=== PATIENT | male | born 1975 | race Caucasian/White ===

== ENCOUNTER 2016-12-23 17:29 | Emergency (ER) | payer OTHER ==
[2016-12-23] MEDS ORDERED: SODIUM CHLORIDE 0.9% 2,000 ML IV ONE (17:44)
[2016-12-23] MEDS ORDERED: IBUPROFEN 600 MG TAB PO STA (17:44)
--- NOTE | 2016-12-23 17:47 | ED ---
General Adult HPI - General Chief complaint: Alcohol Stated complaint: ETOH Time Seen by Provider: 12/23/16 17:34 Source: patient, EMS, RN notes reviewed Mode of arrival: EMS Limitations: no limitations - History of Present Illness Initial comments: This a 41-year-old male is brought to the emergency department via EMS for alcohol intoxication. Report was that he was too intoxicated to walk home. EMS reported his vitals were stable though he is febrile with tachycardia here. Patient has no specific complaints. Patient's not willing to give much information at this time as he is severely intoxicated. Patient denies any illicit drug use. Denies any heart medications and denies any past medical history. He denies chest pain, palpitations, nausea vomiting diarrhea constipation. Denies any cold-like symptoms. Patient states he does not have a fever states he has not felt sick. Patient states that he was at a local festival in which he was drinking. - Related Data Home Medications Medication Instructions Recorded Confirmed Multivitamin/Iron/Folic Acid 1 each PO DAILY 08/04/15 08/04/15 [Centrum Complete Multivit Tab] Previous Rx's Medication Instructions Recorded Amoxic-Pot Clav 875-125Mg 1 tab PO Q12HR #8 tablet 08/04/15 [Augmentin 875-125] Allergies Allergy/AdvReac Type Severity Reaction Status Date / Time No Known Allergies Allergy Verified 12/23/16 17:41 Review of Systems ROS Statement: Those systems with pertinent positive or pertinent negative responses have been documented in the HPI. ROS Other: All systems not noted in ROS Statement are negative. Past Medical History Past Medical History: No Reported History History of Any Multi-Drug Resistant Organisms: None Reported Past Surgical History: No Surgical Hx Reported Past Psychological History: No Psychological Hx Reported Smoking Status: Current every day smoker Past Alcohol Use History: Daily, Heavy Past Drug Use History: None Reported General Exam Limitations: no limitations General appearance: alert, in no apparent distress, appears intoxicated Head exam: Present: atraumatic, normocephalic, normal inspection Eye exam: Present: normal appearance, PERRL, EOMI. Absent: scleral icterus, conjunctival injection, periorbital swelling ENT exam: Present: normal exam, normal oropharynx, mucous membranes moist, TM's normal bilaterally Neck exam: Present: normal inspection. Absent: tenderness, meningismus, lymphadenopathy Respiratory exam: Present: normal lung sounds bilaterally. Absent: respiratory distress, wheezes, rales, rhonchi, stridor Cardiovascular Exam: Present: normal rhythm, tachycardia, normal heart sounds. Absent: systolic murmur, diastolic murmur, rubs, gallop, clicks GI/Abdominal exam: Present: soft, normal bowel sounds. Absent: distended, tenderness, guarding, rebound, rigid Neurological exam: Present: alert, oriented X3, CN II-XII intact Skin exam: Present: warm, dry, intact, normal color. Absent: rash Course Vital Signs 12/23/16 12/23/16 17:33 18:22 Temperature 101.1 F H Pulse Rate 131 H 122 H Respiratory 18 16 Rate Blood Pressure 143/86 157/96 O2 Sat by Pulse 99 98 Oximetry EKG Findings - EKG Comments: EKG Findings:: EKG performed at 17:58 sinus tachycardia with a rate of 119 [place] interval 150 QRS duration 96 QT/QTC 320/450 Medical Decision Making - Medical Decision Making 41-year-old male presented to [facility] from EMS for alcohol intoxication. Patient did have a fever and slight tachycardia. Patient lab work symptoms unremarkable other than a mild elevation of his lactic acid most related to dehydration. Patient is requesting to be discharged and has ripped out his IV. Patient does have from here who is sober and excessive presents polio the patient. - Lab Data Result diagrams: 12/23/16 18:12 12/23/16 18:12 Lab Results 12/23/16 12/23/16 12/23/16 Range/Units 18:12 18:12 18:12 WBC (3.8-10.6) k/uL RBC (4.30-5.90) m/uL Hgb (13.0-17.5) gm/dL Hct (39.0-53.0) % MCV (80.0-100.0) fL MCH (25.0-35.0) pg MCHC (31.0-37.0) g/dL RDW (11.5-15.5) % Plt Count (150-450) k/uL Neutrophils % % Lymphocytes % % Monocytes % % Eosinophils % % Basophils % % Neutrophils # (1.3-7.7) k/uL Lymphocytes # (1.0-4.8) k/uL Monocytes # (0-1.0) k/uL Eosinophils # (0-0.7) k/uL Basophils # (0-0.2) k/uL Sodium 141 (137-145) mmol/L Potassium 4.4 (3.5-5.1) mmol/L Chloride 102 (98-107) mmol/L Carbon Dioxide 22 (22-30) mmol/L Anion Gap 17 mmol/L BUN 6 L (9-20) mg/dL Creatinine 0.80 (0.66-1.25) mg/dL Est GFR (MDRD) Af Amer >60 (>60 ml/min/1.73 sqM) Est GFR (MDRD) Non-Af >60 (>60 ml/min/1.73 sqM) Glucose 93 (74-99) mg/dL Plasma Lactic Acid Cj (0.7-2.0) mmol/L Calcium 9.4 (8.4-10.2) mg/dL Total Bilirubin 1.2 (0.2-1.3) mg/dL AST 64 H (17-59) U/L ALT 65 (21-72) U/L Alkaline Phosphatase 92 (38-126) U/L Troponin I (0.000-0.034) ng/mL Total Protein 8.5 H (6.3-8.2) g/dL Albumin 5.1 H (3.5-5.0) g/dL Lipase 121 (23-300) U/L Urine Color Colorless Urine Appearance Clear (Clear) Urine pH 6.5 (5.0-8.0) Ur Specific Dolphin 1.002 (1.001-1.035) Urine Protein Negative (Negative) Urine Glucose (UA) Negative (Negative) Urine Ketones Negative (Negative) Urine Blood Negative (Negative) Urine Nitrite Negative (Negative) Urine Bilirubin Negative (Negative) Urine Urobilinogen <2.0 (<2.0) mg/dL Ur Leukocyte Esterase Negative (Negative) Urine Opiates Screen Not Detected (NotDetected) Ur Oxycodone Screen Not Detected (NotDetected) Urine Methadone Screen Not Detected (NotDetected) Ur Propoxyphene Screen Not Detected (NotDetected) Ur Barbiturates Screen Not Detected (NotDetected) U Tricyclic Antidepress Not Detected (NotDetected) Ur Phencyclidine Scrn Not Detected (NotDetected) Ur Amphetamines Screen Not Detected (NotDetected) U Methamphetamines Scrn Not Detected (NotDetected) U Benzodiazepines Scrn Not Detected (NotDetected) Urine Cocaine Screen Not Detected (NotDetected) U Marijuana (THC) Screen Detected H (NotDetected) Serum Alcohol 364 mg/dL 12/23/16 12/23/16 12/23/16 Range/Units 18:12 18:12 18:12 WBC 5.0 (3.8-10.6) k/uL RBC 4.46 (4.30-5.90) m/uL Hgb 14.5 (13.0-17.5) gm/dL Hct 43.6 (39.0-53.0) % MCV 97.8 (80.0-100.0) fL MCH 32.6 (25.0-35.0) pg MCHC 33.3 (31.0-37.0) g/dL RDW 12.1 (11.5-15.5) % Plt Count 224 (150-450) k/uL Neutrophils % 60 % Lymphocytes % 27 % Monocytes % 7 % Eosinophils % 1 % Basophils % 2 % Neutrophils # 3.0 (1.3-7.7) k/uL Lymphocytes # 1.3 (1.0-4.8) k/uL Monocytes # 0.4 (0-1.0) k/uL Eosinophils # 0.0 (0-0.7) k/uL Basophils # 0.1 (0-0.2) k/uL Sodium (137-145) mmol/L Potassium (3.5-5.1) mmol/L Chloride (98-107) mmol/L Carbon Dioxide (22-30) mmol/L Anion Gap mmol/L BUN (9-20) mg/dL Creatinine (0.66-1.25) mg/dL Est GFR (MDRD) Af Amer (>60 ml/min/1.73 sqM) Est GFR (MDRD) Non-Af (>60 ml/min/1.73 sqM) Glucose (74-99) mg/dL Plasma Lactic Acid Cj 2.7 H* (0.7-2.0) mmol/L Calcium (8.4-10.2) mg/dL Total Bilirubin (0.2-1.3) mg/dL AST (17-59) U/L ALT (21-72) U/L Alkaline Phosphatase (38-126) U/L Troponin I <0.012 (0.000-0.034) ng/mL Total Protein (6.3-8.2) g/dL Albumin (3.5-5.0) g/dL Lipase (23-300) U/L Urine Color Urine Appearance (Clear) Urine pH (5.0-8.0) Ur Specific Dolphin (1.001-1.035) Urine Protein (Negative) Urine Glucose (UA) (Negative) Urine Ketones (Negative) Urine Blood (Negative) Urine Nitrite (Negative) Urine Bilirubin (Negative) Urine Urobilinogen (<2.0) mg/dL Ur Leukocyte Esterase (Negative) Urine Opiates Screen (NotDetected) Ur Oxycodone Screen (NotDetected) Urine Methadone Screen (NotDetected) Ur Propoxyphene Screen (NotDetected) Ur Barbiturates Screen (NotDetected) U Tricyclic Antidepress (NotDetected) Ur Phencyclidine Scrn (NotDetected) Ur Amphetamines Screen (NotDetected) U Methamphetamines Scrn (NotDetected) U Benzodiazepines Scrn (NotDetected) Urine Cocaine Screen (NotDetected) U Marijuana (THC) Screen (NotDetected) Serum Alcohol mg/dL Disposition Clinical Impression: Alcoholic intoxication Disposition: HOME SELF-CARE Condition: Stable Instructions: Alcohol Intoxication (ED) Additional Instructions: Please return to the Emergency Department if symptoms worsen or any other concerns. Referrals: Rachael Rodgers MD [Primary Care Provider] - 1-2 days Time of Disposition: 19:21
[2016-12-23 18:24] VITALS: RESP 16
[2016-12-23 18:34] LABS: Basophils # (A) 0.1 k/uL (0-0.2); Basophils % (A) 2 %; CH 33.6; CHCM 34.4; Eosinophils % (A) 1 %; HCT 43.6 % (39.0-53.0); HDW 2.05; HGB 14.5 gm/dL (13.0-17.5); Luc # (Auto) 0.17; Luc % (Auto) 3; Lymphocytes # (A) 1.3 k/uL (1.0-4.8); Lymphocytes % (A) 27 %; MCH 32.6 pg (25.0-35.0); MCHC 33.3 g/dL (31.0-37.0); MCV 97.8 fL (80.0-100.0); Mean Platelet Volume 6.3; Monocytes # (A) 0.4 k/uL (0-1.0); Monocytes % (A) 7 %; Neutrophils % (A) 60 %; RBC 4.46 m/uL (4.30-5.90); RDW 12.1 % (11.5-15.5); WBC (Perox) 4.68
--- NOTE | 2016-12-23 18:34 | XR ---
EXAMINATION TYPE: XR chest 2V DATE OF EXAM: 12/23/2016 COMPARISON: NONE HISTORY: Chest pain. Positive EtOH. TECHNIQUE: Frontal and lateral views of the chest are obtained. FINDINGS: There is no focal air space opacity, pleural effusion, or pneumothorax seen. The cardiac silhouette size is within normal limits. The osseous structures are intact. IMPRESSION: No acute cardiopulmonary process.
[2016-12-23 18:42] LABS: Appearance,Urine Clear (Clear); Bilirubin,Urine Negative (Negative); Glucose,Urine (UA) Negative (Negative); Ketones,Urine Negative (Negative); Leukocyte Esterase,Urine Negative (Negative); Nitrite,Urine Negative (Negative); PH, Urine 6.5 (5.0-8.0); Protein,Urine Negative (Negative); Specific Gravity,Urine 1.002 (1.001-1.035); UA Billing (MACRO vs. MICRO) CHEM; Urobilinogen,Urine <2.0 mg/dL (<2.0)
[2016-12-23 18:53] LABS: ALT 65 U/L (21-72); AST 64 U/L (17-59); Alkaline Phosphatase 92 U/L (38-126); Anion Gap 17 mmol/L; Blood Urea Nitrogen 6 mg/dL (9-20); Calcium 9.4 mg/dL (8.4-10.2); Carbon Dioxide 22 mmol/L (22-30); Chloride 102 mmol/L (98-107); Glucose 93 mg/dL (74-99); Non-African American GFR(MDRD) >60 (>60 ml/min/1.73 sqM); Potassium 4.4 mmol/L (3.5-5.1); Sodium 141 mmol/L (137-145); Total Bilirubin 1.2 mg/dL (0.2-1.3); Total Protein 8.5 g/dL (6.3-8.2)
[2016-12-23 19:09] LABS: Alcohol 364 mg/dL
[2016-12-23 19:28] VITALS: BP 157/86; PULSE 112; TEMP 100
== END 2016-12-23 19:29 | disposition home or self-care (01) ==
LOC: EC 17:29
DX: F10.129 Alcohol abuse with intoxication, unspecified (principal); R00.0 Tachycardia, unspecified; R50.9 Fever, unspecified; R74.0 Nonspecific elevation of levels of transaminase and lactic acid dehydrogenase [LDH]; F17.200 Nicotine dependence, unspecified, uncomplicated; Z79.899 Other long term (current) drug therapy
CPT/HCPCS: 36415; 71020; 80053; 80306; 80320; 81003; 83605; 83690; 84484; 85025; 87040; 93005; 96360; 99284

== ENCOUNTER 2017-01-22 16:05 | Emergency (ER) | payer OTHER ==
[2017-01-22 16:29] VITALS: BP 132/96; TEMP 98.5
[2017-01-22] MEDS ORDERED: KETOROLAC 60 MG/2 ML VIAL IM STA (16:40)
[2017-01-22] MEDS ORDERED: methylPREDNISolone SOD SUCCI 125 MG/2 ML VIAL IM ONE (16:40)
--- NOTE | 2017-01-22 16:50 | ED ---
Upper Extremity HPI - General Chief Complaint: Extremity Injury, Upper Stated Complaint: Left Hand Numbness X's 1 Week Time Seen by Provider: 01/22/17 16:31 Source: patient, RN notes reviewed Mode of arrival: ambulatory Limitations: no limitations - History of Present Illness Initial Comments: 41-year-old male presents to the emergency department with the chief complaint of left forearm and hand numbness tingling. Patient states she's had this on and off the past few weeks and is getting worse. He is having pain with it. 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 Patient denies any neck pain. Patient is a full-time is interested in pain. Patient states is more along the thumb area hand. Patient states he feels that his hand is more weak compared to normal as well. Patient states it's been crying for about 3 weeks and just rest the elbow goes to the hand. Patient states is not currently having any other symptoms at this time. He states the pain is moderate and throbbing. Patient denies any recent fever, chills, shortness of breath, chest pain, back pain, abdominal pain, nausea vomiting, dysuria or hematuria, constipation or diarrhea, headaches or visual changes, or any other current symptoms. - Related Data Home Medications Medication Instructions Recorded Confirmed Multivitamin/Iron/Folic Acid 1 tab PO DAILY 08/04/15 01/22/17 [Centrum Complete Multivit Tab] Previous Rx's Medication Instructions Recorded predniSONE 50 mg PO DAILY #5 tab 01/22/17 Allergies Allergy/AdvReac Type Severity Reaction Status Date / Time No Known Allergies Allergy Verified 01/22/17 16:41 Review of Systems ROS Statement: Those systems with pertinent positive or pertinent negative responses have been documented in the HPI. ROS Other: All systems not noted in ROS Statement are negative. Past Medical History Past Medical History: No Reported History History of Any Multi-Drug Resistant Organisms: None Reported Past Surgical History: No Surgical Hx Reported Past Psychological History: No Psychological Hx Reported Smoking Status: Current every day smoker Past Alcohol Use History: Daily, Occasional General Exam - General Exam Comments Initial Comments: General: The patient is awake and alert, in no distress, and does not appear acutely ill. Neck: The neck is supple, there is no tenderness. Cardiovascular: There is a regular rate and rhythm. No murmur, rub or gallop is appreciated. Respiratory: Lungs are clear to auscultation, respirations are non-labored, breath sounds are equal. No wheezes, stridor, rales, or rhonchi. Musculoskeletal: Sensation intact with 2+ pulses throughout the left upper x- ray. Fund motion left shoulder and left elbow. Patient does have decreased strength to the left hand. Sensation is intact however he complains that it does feel different compared to the right along the right thumb area. Neurological: CN II-XII intact, There are no obvious motor or sensory deficits. Coordination appears grossly intact. Speech is normal. Skin: Skin is warm and dry and no rashes or lesions are noted. Psychiatric: Normal mood and affect. Limitations: no limitations Course Vital Signs 01/22/17 16:19 Temperature 98.5 F Pulse Rate 91 Respiratory 20 Rate Blood Pressure 132/96 O2 Sat by Pulse 100 Oximetry Medical Decision Making - Medical Decision Making 41-year-old male presents with what appears to be cervical radiculopathy. At this time we did discuss follow-up and he was given referral to orthopedic. We discussed return parameters all patient's questions. We will start him concerns for home. Patient stated that he understood and he is in agreement with this plan. All questions have been answered. Patient will be discharged at this time. - Radiology Data Radiology results: report reviewed, image reviewed Disposition Clinical Impression: Cervical radiculopathy Disposition: HOME SELF-CARE Condition: Stable Instructions: Cervical Radiculopathy (ED) Additional Instructions: Please use medication as discussed. Please follow up with family doctor if symptoms have not improved over the next two days. Please return to the emergency room if your symptoms increase or worsen or for any other concerns. Prescriptions: predniSONE 50 mg PO DAILY #5 tab Referrals: Rachael Rodgers MD [Primary Care Provider] - 1-2 days Juan Huitron MD [STAFF PHYSICIAN] - 1-2 days Time of Disposition: 17:59
--- NOTE | 2017-01-22 17:58 | XR ---
Exam: FILM C SPINE INDICATION: Pain COMPARISON: MRI cervical spine 09/06/15 FINDINGS: 6 views of the cervical spine are obtained to include bilateral oblique views. No fracture or malalignment. Vertebral body heights are maintained. There is mild to moderate C6/C7 degenerative disc space narrowing. There is uncovertebral joint degenerative changes at C6/C7 with degenerative osseous encroachment on the foramina bilaterally left greater than right with mild right osseous and moderate left osseous foraminal narrowing. Component of mild endplate degenerative osteophyte formation appears to mildly encroach on the central canal at C6/C7 level. Remaining disc heights are maintained. Posterior elements unremarkable. Remaining uncovertebral joints are unremarkable. Remaining osseous foramina are patent. Paraspinous soft tissues unremarkable by radiograph. IMPRESSION: No fracture or malalignment. C6/C7 mild to moderate degenerative disc space narrowing with uncovertebral joint degenerative changes with osseous degenerative encroachment on the bilateral C6/C7 foramina with moderate left osseous foraminal narrowing and mild right osseous foraminal narrowing. Mild endplate degenerative osteophytes formation appears to mildly encroach on the central canal at C6/C7 level. Degree of foraminal narrowing may be more prominent due to disc bulge process. If indicated MRI examination follow-up can be considered. Remainder of the examination is unremarkable.
[2017-01-22 18:04] VITALS: PULSE 83; RESP 18
== END 2017-01-22 18:00 | disposition home or self-care (01) ==
LOC: EC 16:05
DX: M54.12 Radiculopathy, cervical region (principal); F17.200 Nicotine dependence, unspecified, uncomplicated; Z79.899 Other long term (current) drug therapy
CPT/HCPCS: 72050; 99283; 96372 ×2; J2930; J1885

== ENCOUNTER → 2017-04-04 | Outpatient (CLI) | payer OTHER ==
--- NOTE | 2017-04-04 08:58 | US ---
EXAMINATION TYPE: US abdomen complete DATE OF EXAM: 04/04/2017 COMPARISON: NONE CLINICAL HISTORY: F10.20 Alcoholism. no symptoms EXAM MEASUREMENTS: Liver Length: 14.7 cm Gallbladder Wall: 0.1 cm CBD: 0.4 cm Spleen: 11.2 cm Right Kidney: 9.9 x 5.4 x 5.2 cm Left Kidney: 12.3 x 4.6 x 5.4 cm Pancreas: wnl Liver: wnl Gallbladder: fold seen, tiny nonshadowing nonmobile hyperechoic focus along the wall could reflect s mall 3 mm polyp. Evidence for sonographic Huitron's sign: no CBD: wnl Spleen: wnl Right Kidney: wnl Left Kidney: wnl Upper IVC: wnl Abd Aorta: wnl The liver is homogenous. The intrahepatic portion of the IVC and proximal abdominal aorta are within normal limits. There is no evidence of shadowing mobile cholelithiasis. Common bile duct is unrema rkable. The visualized portions of the pancreas are homogenous. The spleen is unremarkable. Kidney s are symmetric and free of hydronephrosis. No renal lesions are seen. IMPRESSION: No significant finding identified. No intrahepatic mass or intrahepatic ductal dilatation is seen.
== END | disposition home or self-care (01) ==
LOC: RADUSWWP 07:08
PROVIDERS: ATTEND Family Medicine
DX: F10.20 Alcohol dependence, uncomplicated (principal)
CPT/HCPCS: 76700

== ENCOUNTER 2017-11-21 13:23 | Observation (INO) | payer OTHER ==
[2017-11-16 15:20] VITALS: BMI 22.4
[~2017-11-21 13:23] MED LIST: DEXAMETHASONE SOD PHOSPHATE 10 MG/ML 1 ML VIAL IV ONE; LIDOCAINE 1% 20 ML VIAL (10MG/ML) FOR IV START INTRADERMA PRN; MIDAZOLAM 2 MG/2 ML VIAL IV PRN; ONDANSETRON ODT 4 MG TAB PO ONE; SCOPOLAMINE 1.5MG/72HR PATCH TRANSDERM ONE; ceFAZolin IN SWFI 2 GM/20 ML SYRINGE IVP ONE; fentaNYL (PF) 50 MCG/ML 2 ML AMP IV PRN
[2017-11-21] MEDS: LACTATED RINGERS 1,000 ML IV SCH ×3 (13:30→21:10)
[2017-11-21] MEDS ORDERED: ONDANSETRON 4 MG/2 ML VIAL IVP ONE (13:52)
[2017-11-21] MEDS ORDERED: PROPOFOL 10 MG/ML 20 ML VIAL IV ONE (16:29)
[2017-11-21] MEDS ORDERED: fentaNYL (PF) 50 MCG/ML 2 ML AMP ONE (16:29)
[2017-11-21] MEDS ORDERED: LIDOCAINE 1% INJ 10MG/ML (20 ML MDV) ONE (16:29)
[2017-11-21] MEDS ORDERED: MIDAZOLAM 2 MG/2 ML VIAL ONE (16:29)
[2017-11-21] MEDS ORDERED: ROCURONIUM BROMIDE 10 MG/ML 10 ML VIAL IV ONE (16:29)
[2017-11-21] MEDS ORDERED: ONDANSETRON 4 MG/2 ML VIAL IVP PRN (16:39)
[2017-11-21] MEDS ORDERED: PROCHLORPERAZINE SUPPOSITORY 25 MG SUPP RECTAL PRN (16:39)
[2017-11-21] MEDS ORDERED: SENNOSIDES-DOCUSATE SODIUM 1 EACH TAB PO PRN (16:39)
[2017-11-21] MEDS ORDERED: TEMAZEPAM 15 MG CAP PO PRN (16:39)
[2017-11-21] MEDS ORDERED: METOCLOPRAMIDE 5 MG/ML 2 ML VIAL IVP PRN (16:39)
[2017-11-21] MEDS ORDERED: MORPHINE SULFATE 4 MG/ML SYRINGE IVP PRN ×3 (16:39→20:16)
[2017-11-21] MEDS ORDERED: hydrOXYzine PAMOATE 25 MG CAP PO PRN (16:39)
[2017-11-21] MEDS ORDERED: diphenhydrAMINE 25 MG CAP PO PRN (16:39)
[2017-11-21] MEDS ORDERED: HYDROcodone/APAP 7.5-325MG 1 EACH TAB PO PRN (16:43)
[2017-11-21] MEDS ORDERED: ROPIVACAINE 5 MG/ML 30 ML VIAL ONE (16:53)
[2017-11-21] MEDS ORDERED: ceFAZolin 1,000 MG in SODIUM CHLORIDE 0.9% 1,000 ML IRRIGATION ONE (16:57)
[2017-11-21] MEDS ORDERED: LACTATED RINGERS 1,000 ML IV ONE (18:16)
[2017-11-21] MEDS ORDERED: MEPERIDINE 50 MG/ML SYRINGE IVP ONE ×2 (20:00→20:10)
--- NOTE | 2017-11-21 20:12 | P.OP ---
Date of Procedure: 11/21/17 Preoperative Diagnosis: 1. Left Caicedo II talar neck fracture 2. History of cigarette smoking 3. Chronic alcohol abuse 4. Noncompliance Postoperative Diagnosis: Same Procedure(s) Performed: 1. Open reduction internal fixation left talar neck fracture 2. Removal of ankle spanning external fixator, left 3. Application of short leg splint by physician, left Anesthesia: EDINSONA Surgeon: Catracho Ch Business Development Coordinator #1: Rohit Levine Estimated Blood Loss (ml): 40 IV fluids (ml): 950 Pathology: none sent Condition: stable Disposition: PACU Indications for Procedure: The patient is a 42-year-old male with a medical history significant for cigarette smoking and chronic alcohol abuse who sustained a fall off a ladder in late October 2017 resulting in a displaced talar neck fracture. He underwent percutaneous reduction and application of an ankle spanning external fixator due to significant soft tissue swelling and fracture blisters. The patient has been monitored weekly for the last 2 weeks watching for the soft tissue to be amenable for surgery. The patient was seen yesterday and was found to have wrinkling of the skin and resolved fracture blisters. The patient states that he has not smoked since his accident but has gone to the bar several times. We discussed the potential risks and complication of surgery at length in the office. Risks discussed include risk of anesthesia, risk of superficial infection, deep infection, risk of damage to local blood vessels or nerves, risk of nonunion, risk of malunion particularly varus malunion, risk of symptomatic hardware, risk of avascular necrosis, risk of chronic pain, risk of chronic swelling, risk of postoperative displacement of the fracture or peritalar joints, risk of DVT, risk of PE, risk of inability to regain preinjury level of function, risk of the satisfaction of surgery, risk of postoperative medical complications, and possibly loss of life or limb. The patient is well aware of the risks particularly associated with displaced talar neck fractures in particular risk of avascular necrosis, risk of post-traumatic arthritis, risk of nonunion, and risk of malunion. The patient and his parents also understand the increased risk due to the patient's history of smoking and chronic alcohol abuse. They provided their consent to go forward with surgery. Operative Findings: There was extensive comminution of the medial and lateral neck of the talus Description of Procedure: The patient was identified in preoperative holding and the correct left leg was marked with my initials. I reviewed the consent form with the patient and his parents. All of their questions were answered. The patient was then brought back to the operating room by anesthesia. A general anesthetic and preoperative antibiotics were administered well the patient was on the gurney. He was then transferred to the OR table and positioned for surgery. A bump was placed on the left buttock internally rotating the leg to neutral. A tourniquet was applied proximal aspect of the left thigh. Foam was placed under the right leg. All bony prominences were well-padded. The patient's left leg was then prepped and draped in a standard sterile fashion prepping the external fixator into the field. The timeout was then performed identifying the correct patient, operative extremity, and procedure. The patient's leg was elevated for 2 minutes and the tourniquet was inflated to 250 mmHg. I began by outlining dual incisions over the anteromedial and anterolateral ankle and talar neck. The anteromedial incision started at the medial malleolus and is between the tibialis anterior and posterior tibial tendon. The anterolateral incision was started over the anterolateral ankle and extended in line with the fourth ray. The medial incision was made with a scalpel and dissection was carried down carefully to the subcutaneous tissue. The capsule the talonavicular joint was identified and opened. The talar head was identified. The talar neck fracture was also identified and there were several large bony fragments and comminution. The large fragments were handed off to the back table and marked as medial. The lateral incision was then made with a scalpel. The superficial peroneal nerve was identified and carefully retracted. The extensor retinaculum was incised. The extensor tendons were retracted medially and the EDB muscle and capsule were incised. The talar neck fracture was then identified. There was extensive comminution laterally particularly at the lateral talar process. There were multiple small osteochondral fragments. The larger fragments were marked. There are multiple small nonviable fragments. I then proceeded to reduce the talar neck fracture. A K wire was placed from lateral to medial across the head fragment to use as a joystick. The graphite bars from the external fixator were removed. A 4 mm Schanz pain was placed into the lateral talar body to use as a joystick. My partner pulled longitudinal traction through the trans-calcaneal pin and I manipulated the talar body fracture with the Schanz pin and universal lucina. Once the subtalar joint was found to be reduced K wires were placed medially and laterally through the talar head and into the body. A lateral fluoroscopic view showed the subtalar joint was reduced but the body was plantarflexed. The K wires withdrawn and I used the 4 mm Schanz pin to dorsiflex the talar body and the K wires were again driven across the talar body. I used both the medial and lateral incisions to gauge the reduction which was difficult due to the extensive amount of comminution. Clinically the patient's foot did not appear to be over reduced. The lateral view showed the subtalar joint reduced and the head portion of the talus reduced fairly well to the body. I debated placing a spanning external fixator from the calcaneus to the midfoot but due to the patient's history of alcohol abuse and cigarette smoking I elected not to. I then placed a non-lag, countersunk screws both medially and laterally through the talar head into the talar body. Two 3.5 screws were placed medial and laterally and two 2.7 screws were placed both medial and lateral. The position of the screws and the reduction was verified with a lateral, mortise, AP foot, and canal he view. The reduction was deemed to be adequate given the patient's extensive amount of comminution. The large anterolateral fragment was pinned into place and an independent 2.0 mm screw was placed. Final fluoroscopic images were taken. Both wounds were copiously irrigated. The tibial pins were removed by hand. The trans-calcaneal pin was cut at the skin medially and removed laterally. The pin sites were gently debrided using a curette and irrigated. Both the anteromedial and anterolateral wounds were closed in layers with 0 Vicryl for the capsule, 2-0 Vicryl for the retinaculum, 2-0 Vicryl for the subcutaneous tissue, and nylon horizontal mattress for the skin. I verified that all instrument, sponge, and sharp counts were correct, Betadine soaked Adaptics were placed over the Schanz pin sites from the external fixator. Silvadene was placed over the posteromedial ankle at the site of the last fracture blister. The surgical incisions had Betadine soaked Adaptic, 4 x 4's, and web roll placed. The drapes were taken down and a well- padded bulky Blair splint was placed with the ankle in neutral. The patient was then awoken from his anesthetic, transferred to a gurney, and brought to PACU without the procedure well. Rohit Levine PA-C was required is a skilled neurosurgical physician assistant for patient positioning, surgical exposure, fracture reduction, placement of hardware, closure of wounds , and application of splint. Postoperative plan: The patient is going to be admitted overnight for IV antibiotics and pain control. He is to be strictly nonweightbearing on his left leg. He'll be treated with Lovenox while in-house for DVT prophylaxis and will discharge home on aspirin. He is going to be strictly nonweightbearing for 12 weeks.
--- NOTE | 2017-11-21 20:13 | P.ONQ ---
Anesthesiology Proc Note - PNB - Peripheral Nerve Block Performed Left Popliteal Indication: Acute Post-Operative Pain, Requested by physician (Dr Spear) Sedation Type: Sedate with meaningful contact maintained Preparation: Sterile Prep Position: Supine (Lateral) Catheter: None Needle Types: Other (see comment) (Geovanni) Needle Gauge: 21 Injectate: 0.5% Ropivacaine (see comment for volume) (20cc) Blood Aspirated: No Pain Paresthesia on Injection Noted: No Resistance on Injection: Normal Events: Uneventful and Well Tolerated
[2017-11-21 20:33] VITALS: RESP 16
[2017-11-21] MEDS: MORPHINE SULFATE 4 MG/ML SYRINGE IVP PRN (21:04)
[2017-11-21] MEDS: HYDROcodone/APAP 7.5-325MG 1 EACH TAB PO PRN (22:03)
[2017-11-21] MEDS: ceFAZolin IN SWFI 2 GM/20 ML SYRINGE IVP SCH (23:19)
[2017-11-22] MEDS: MORPHINE SULFATE 4 MG/ML SYRINGE IVP PRN ×6 (00:04→21:54)
[2017-11-22] MEDS: HYDROcodone/APAP 7.5-325MG 1 EACH TAB PO PRN (04:43)
[2017-11-22] MEDS: LACTATED RINGERS 1,000 ML IV SCH ×4 (04:44→21:57)
[2017-11-22 07:28] LABS: Basophils % (A) 0 %; Eosinophils % (A) 0 %; HCT 35.6 % (39.0-53.0); HGB 11.9 gm/dL (13.0-17.5); Lymphocytes # (A) 0.8 k/uL (1.0-4.8); Lymphocytes % (A) 8 %; MCHC 33.4 g/dL (31.0-37.0); Mean Platelet Volume 6.8; Monocytes # (A) 0.6 k/uL (0-1.0); Monocytes % (A) 6 %; Neutrophils # (A) 8.4 k/uL (1.3-7.7); Neutrophils % (A) 85 %; Platelet Count 466 k/uL (150-450); RBC 3.96 m/uL (4.30-5.90); RDW 12.8 % (11.5-15.5); WBC 9.9 k/uL (3.8-10.6)
[2017-11-22] MEDS: ENOXAPARIN 40 MG/0.4 ML SYRINGE SQ SCH (08:31)
[2017-11-22] MEDS: ceFAZolin IN SWFI 2 GM/20 ML SYRINGE IVP SCH (08:31)
--- NOTE | 2017-11-22 08:33 | P.PN ---
Subjective Progress Note Date: 11/22/17 Principal diagnosis: Talar neck fracture left ankle. Status post removal external fixator and open reduction internal fixation left talar neck. This is a 42-year-old male who is status post open reduction internal fixation of his talar neck fracture left ankle as well as removal of external fixator. The patient has no new complaints or concerns today. He rates his pain 8/10. The patient does have history of EtOH abuse. Objective - Vital Signs Vital signs: Vital Signs Temp 98.5 F 11/22/17 07:15 Pulse 81 11/22/17 07:15 Resp 16 11/22/17 07:15 BP 117/63 11/22/17 07:15 Pulse Ox 100 11/22/17 07:15 Intake & Output 11/21/17 11/22/17 11/22/17 18:59 06:59 18:59 Intake Total 1101 450 Output Total 40 Balance 1101 410 Weight 74.843 kg Intake: IV 1101 450 Output: Estimated Blood Loss 40 Other: # Voids 3 - Exam This is a 42-year-old male in no acute distress. He is alert and oriented 3. Exam of the lower extremity reveals no obvious deformity. The short leg splint is intact. He is unable to move toes actively. He has dulled sensation to the toes. Capillary refill is less than 3 seconds. - Labs CBC & Chem 7: 11/22/17 07:05 Labs: Abnormal Lab Results - Last 24 Hours (Table) 11/22/17 Range/Units 07:05 RBC 3.96 L (4.30-5.90) m/uL Hgb 11.9 L (13.0-17.5) gm/dL Hct 35.6 L (39.0-53.0) % Plt Count 466 H (150-450) k/uL Neutrophils # 8.4 H (1.3-7.7) k/uL Lymphocytes # 0.8 L (1.0-4.8) k/uL Assessment and Plan (1) Status post ORIF of fracture of ankle Current Visit: Yes Status: Acute Code(s): Z96.7 - PRESENCE OF OTHER BONE AND TENDON IMPLANTS; Z87.81 - PERSONAL HISTORY OF (HEALED) TRAUMATIC FRACTURE SNOMED Code(s): 540050962 (2) Fracture of neck of left talus Current Visit: No Status: Acute Code(s): S92.112A - DISP FX OF NECK OF LEFT TALUS, INIT FOR CLOS FX SNOMED Code(s): 648451268 Plan: The clinical findings are discussed the patient. I reviewed the case with Dr. Ch. The patient will remain inpatient today. I've increase his pain medication to Percocet 5/325. He is to continue strict nonweightbearing to the left lower extremity with walker or crutches. I've consulted medical management. The patient may require DT prophylaxis.
--- NOTE | 2017-11-22 08:50 | FL ---
EXAMINATION TYPE: FL guidance operating room DATE OF EXAM: 11/21/2017 HISTORY: Flouroscopy time 2 minutes and 26 seconds of fluoroscopy provided. IMPRESSION: 1. Fluoroscopy time.
--- NOTE | 2017-11-22 08:52 | XR ---
EXAMINATION TYPE: XR ankle complete LT DATE OF EXAM: 11/21/2017 COMPARISON: NONE HISTORY: Talus fracture TECHNIQUE: Intraoperative images were obtained with a single views submitted FINDINGS: Postsurgical changes appear in near anatomic alignment. Age-indeterminate deformity of the calcaneus noted. Correlate clinically. IMPRESSION: Postoperative changes seen
[2017-11-22] MEDS: oxyCODONE-APAP 5-325MG 1 EACH TAB PO PRN ×4 (09:35→22:58)
[2017-11-22] MEDS ORDERED: POLYETHYLENE GLYCOL 3350 17 GM POWD.PACK PO PRN (12:55)
--- NOTE | 2017-11-22 13:02 | P.CONS ---
History of Present Illness - Reason for Consult Consult date: 11/22/17 medical management post op Requesting physician: Catracho Ch - Chief Complaint scheduled removal of external fixators from left ankle - History of Present Illness 42-year-old male with no significant past medical history. Patient sustained a fall while climbing on a ladder 3-4 weeks ago resulted in left ankle fracture requiring external fixators. He is presented today for scheduled removal of external fixators and open reduction with internal fixation of the left ankle joints. He tolerated procedure well with no observed immediate perioperative complications. Patient reports that pain is controlled to some degree if he avoid sudden movements. He reports some constipation over the past 4 days, however he is passing urine with no issues and passing gases. His tolerating by mouth intake. Denies any chest pain or trouble breathing denies any fevers or chills.he denies any nausea or vomiting. Patient denies any numbness or tingling sensation over his left toes at this point. Review of Systems Constitutional: Patient denies fever, denies chills, denies night sweating, denies significant weight changes Eyes: Patient denies visual changes, denies eye pain ENT: Patient denies ear pain, denies rhinorrhea, denies sore throat Cardiovascular: Patient denies chest pain, denies exertional dyspnea, denies peripheral leg edema, denies orthopnea, denies paroxysmal nocturnal dyspnea Respiratory:Patient denies cough, denies wheezing, denies shortness of breath Gastrointestinal: Patient denies diarrhea, reports constipation, denies nausea , denies vomiting, denies abdominal pain Genitourinary: Patient denies dysuria, denies hematuria, denies changes in urinary habits, denies genital lesions Musculoskeletal: Patient denies muscle pain, reports pain around surgical site Psychiatric: Patient denies changes in mood or memory, denies suicidal ideation, denies anxiety Endocrine: Patient denies heat intolerance, denies cold intolerance, denies excessive thirst, denies polyuria Neurological: Patient denies focal neurologic deficits, denies weakness, denies numbness, denies tingling Hem/Lymphatic: Patient denies bleeding tendency, denies bruising, denies swollen lymph glands Allergic/Immun: Patient denies recent allergic reactions Skin: Patient denies rashes, denies pruritis, denies ulcers Past Medical History Past Medical History: No Reported History Additional Past Medical History / Comment(s): fx left ankle 2 weeks ago- fell off ladder, using wheelchair,walker and crutches History of Any Multi-Drug Resistant Organisms: None Reported Past Surgical History: Orthopedic Surgery Additional Past Surgical History / Comment(s): cyst removed from neck, 11/02/17 - attempted closed reduction left ankle then external fixation of left ankle Past Anesthesia/Blood Transfusion Reactions: No Reported Reaction Past Psychological History: No Psychological Hx Reported Smoking Status: Current some day smoker (patient quit smoking 2-1/2 weeks ago) Past Alcohol Use History: Daily (patient reports daily drinking however since the incident he has not had any alcohol except for a few drinks 5 days ago) Additional Past Alcohol Use History / Comment(s): stopped smoking 2 weeks ago, smoked for 30 yrs, was occ smoker Past Drug Use History: None Reported - Past Family History Father Family Medical History: Unable to Obtain Mother Family Medical History: No Reported History Additional Family Medical History / Comment(s): patient denies any family history of CAD or cancer Medications and Allergies Home Medications Medication Instructions Recorded Confirmed Type Multivitamin/Iron/Folic Acid 1 tab PO DAILY 08/04/15 11/21/17 History [Centrum Complete Multivit Tab] Aspirin 325 mg PO DAILY 11/16/17 11/21/17 History Sulfamethox-Tmp 800-160Mg [Bactrim 1 tab PO Q12HR 11/16/17 11/21/17 History DS 800-160 mg] oxyCODONE HCL/ACETAMINOPHEN 1 tab PO Q4-6H PRN 11/16/17 11/21/17 History [Percocet 5-325 mg] Allergies Allergy/AdvReac Type Severity Reaction Status Date / Time No Known Allergies Allergy Verified 11/21/17 13:34 Physical Exam Vitals: Vital Signs Temp Pulse Resp BP Pulse Ox 11/22/17 07:15 98.5 F 81 16 117/63 100 11/21/17 22:55 90 104/71 11/21/17 22:40 93 111/73 11/21/17 22:25 92 108/69 11/21/17 22:10 93 114/75 11/21/17 21:40 94 109/71 11/21/17 21:25 91 111/68 11/21/17 21:10 92 111/70 11/21/17 20:55 98.6 F 103 H 16 116/69 100 11/21/17 20:20 101 H 16 126/78 99 11/21/17 20:05 100 18 123/68 99 11/21/17 19:49 98 F 117 H 20 136/77 100 11/21/17 13:54 98.9 F 92 16 108/66 96 Intake and Output 11/21/17 11/22/17 11/22/17 22:59 06:59 14:59 Intake Total 1351 Output Total 40 Balance 1311 Intake: IV 1351 Output: Estimated Blood Loss 40 Other: Voiding Method Urinal # Voids 3 Weight 74.843 kg Constitutional: No acute distress, conversant, pleasant Eyes: Anicteric sclerae, moist conjunctiva, no lid-lag Pupils equal round reactive to light ENMT: NC/AT Oropharynx clear, no erythema, orexudates Neck: Supple, FROM, no masses, or JVD No carotid bruits No thyromegaly Lungs: Clear to auscultation Clear to percussion Normal respiratory effort, no accessory muscle use Cardiovascular: Heart regular in rate and rhythm, No murmurs, gallops, or rubs No peripheral edema Abdominal: Soft Nontender, no guarding, rebound or rigidity Abdomen moving with respiration Normoactive bowel sounds No hepatomegaly, No splenomegaly No palpable mass No abdominal wall hernia noted Skin: Normal temperature, tone, texture, turgor No induration No subcutaneous nodules No rash, lesions No ulcers Extremities: capillary refill is immediate over the left toes No digital cyanosis No clubbing Pedal pulses intact Over the right foot unable to test on the left foot due to cast Radial pulses intact and symmetrical No calf tenderness over the right leg, the left leg is wrapped in surgical dressing in a cast Psychiatric: Alert and oriented to person, place and time Appropriate affect fair judgment Neuro Muscles Strength 5/5 in all 4 extremities except for limited exam over the left lower extremity due to pain postsurgery. Sensation to light touch grossly present throughout Cranial nerves II-XII grossly intact No focal sensory deficits Lymphatics: no palpable cervical or supraclavicular , or inguinal lymph nodes Results CBC & Chem 7: 11/22/17 07:05 Labs: Abnormal Lab Results - Last 24 Hours (Table) 11/22/17 Range/Units 07:05 RBC 3.96 L (4.30-5.90) m/uL Hgb 11.9 L (13.0-17.5) gm/dL Hct 35.6 L (39.0-53.0) % Plt Count 466 H (150-450) k/uL Neutrophils # 8.4 H (1.3-7.7) k/uL Lymphocytes # 0.8 L (1.0-4.8) k/uL Assessment and Plan Assessment: 42-year-old male with no significant past medical history presented for scheduled external fixator removal from his left ankle fracture with open reduction internal fixation this time. Medicine is consult. For postoperative medical management, currently patient seen postoperative day #1 doing well no observed immediate complications. Plan: #left ankle fracture secondary to accidental fall, status post removal of external fixators and open reduction and internal fixation postoperative day one DVT prophylaxis per orthopedics Pain control per orthopedics #Constipation secondary to opiates Senna/docusate scheduled twice a day MiraLAX when necessary #Postoperative anemia secondary to blood loss Continue to monitor no evidence of ongoing bleeding We'll avoid iron supplementation at this time due to patient already complaining of constipation #DVT prophylaxis per orthopedic recommendations #Recent history of regular alcohol intake At this time no risk of alcohol withdrawal, patient has quit drinking for couple weeks now and his most recent drink was 5 days ago where he had couple beers. Patient denies any symptoms of alcohol withdrawal at this time #Tobacco smoking abuse Patient admits to occasionally smoking He has quit 2-1/2 weeks ago Thank you for allowing us to participate in the care of this patient. Do not hesitate to contact us with questions. Someone can be reached from the [facility] hospitalist group at all hours of the day at [phone].
[2017-11-22] MEDS: SENNOSIDES-DOCUSATE SODIUM 1 EACH TAB PO SCH ×2 (13:51→21:54)
[2017-11-22 14:53] LABS: Anion Gap 14 mmol/L; Blood Urea Nitrogen 18 mg/dL (9-20); Calcium 9.2 mg/dL (8.4-10.2); Carbon Dioxide 27 mmol/L (22-30); Chloride 97 mmol/L (98-107); Glucose 100 mg/dL (74-99); Potassium 4.4 mmol/L (3.5-5.1); Sodium 138 mmol/L (137-145)
[2017-11-23] MEDS: MORPHINE SULFATE 4 MG/ML SYRINGE IVP PRN ×2 (02:21→05:29)
[2017-11-23] MEDS: oxyCODONE-APAP 5-325MG 1 EACH TAB PO PRN ×2 (06:02→11:12)
[2017-11-23] MEDS ORDERED: ERGOCALCIFEROL 50,000 UNIT CAP PO SCH (07:30)
[2017-11-23 07:58] VITALS: BP 119/70; PULSE 80; TEMP 98.4
--- NOTE | 2017-11-23 08:31 | P.DS ---
Providers Date of admission: 11/22/17 16:07 Expected date of discharge: 11/23/17 Attending physician: Catracho Ch Consults: 11/22/17 08:25 Consult Physician Urgent Consulting Provider: Jacki Malik Consult Reason/Comments: Medical management Do you want consulting provider notified?: Already Contacted Primary care physician: Rachael Rodgers - Discharge Diagnosis(es) (1) Status post ORIF of fracture of ankle Current Visit: Yes Status: Acute (2) Fracture of neck of left talus Current Visit: No Status: Acute Hospital Course: This is a 42-year-old male who is status post open reduction internal fixation of a talar neck fracture with removal of external fixator left ankle. The patient's pain is improved today. He has been up with a walker maintaining nonweightbearing status to the lower extremity. He has no new complaints or concerns today. He may be discharged to home today in good condition. Please see med rec for accurate list of home medications. Patient Condition at Discharge: Good Plan - Discharge Summary Discharge Rx Participant: Yes New Discharge Prescriptions: New oxyCODONE HCL/ACETAMINOPHEN [Percocet 5-325 mg] 1 - 2 tab PO Q6HR PRN 3 Days #60 tab PRN Reason: Pain Aspirin 325 mg PO BID #60 tab No Action Multivitamin/Iron/Folic Acid [Centrum Complete Multivit Tab] 1 tab PO DAILY Sulfamethox-Tmp 800-160Mg [Bactrim DS 800-160 mg] 1 tab PO Q12HR oxyCODONE HCL/ACETAMINOPHEN [Percocet 5-325 mg] 1 tab PO Q4-6H PRN PRN Reason: Pain Aspirin 325 mg PO DAILY Discharge Medication List Multivitamin/Iron/Folic Acid [Centrum Complete Multivit Tab] 1 tab PO DAILY [History] Aspirin 325 mg PO DAILY 11/16/17 [History] Sulfamethox-Tmp 800-160Mg [Bactrim DS 800-160 mg] 1 tab PO Q12HR 11/16/17 [ History] oxyCODONE HCL/ACETAMINOPHEN [Percocet 5-325 mg] 1 tab PO Q4-6H PRN 11/16/17 [ History] Aspirin 325 mg PO BID #60 tab 11/23/17 [Rx] oxyCODONE HCL/ACETAMINOPHEN [Percocet 5-325 mg] 1 - 2 tab PO Q6HR PRN 3 Days # 60 tab 11/23/17 [Rx] Follow up Appointment(s)/Referral(s): Catracho Ch MD [Medical Doctor] - 10 Days Activity/Diet/Wound Care/Special Instructions: Nonweightbearing left lower extremity with walker or crutches. Keep splint intact. Discharge Disposition: HOME SELF-CARE
[2017-11-23] MEDS: LACTATED RINGERS 1,000 ML IV SCH (08:46)
[2017-11-23] MEDS: SENNOSIDES-DOCUSATE SODIUM 1 EACH TAB PO SCH (08:52)
[2017-11-23] MEDS: ENOXAPARIN 40 MG/0.4 ML SYRINGE SQ SCH (08:52)
[2017-11-23] MEDS ORDERED: CALCIUM CARBONATE 500 MG CHEWABLE PO SCH (09:00)
[2017-11-23] MEDS ORDERED: ASPIRIN 325 MG TAB PO SCH (09:00)
[2017-11-23] MEDS ORDERED: CHOLECALCIFEROL 1,000 UNIT TAB PO SCH (12:00)
== END 2017-11-23 14:17 | disposition home or self-care (01) ==
LOC: OR 13:23 → 3SUR 20:45 → OR 11-22 16:06 → 3SUR 11-22 16:07
PROVIDERS: ADMIT Orthopaedic Surgery; ATTEND Orthopaedic Surgery
DX: S92.112A Displaced fracture of neck of left talus, initial encounter for closed fracture (principal); D62 Acute posthemorrhagic anemia; K59.00 Constipation, unspecified; T40.2X5A Adverse effect of other opioids, initial encounter; F10.10 Alcohol abuse, uncomplicated; G89.18 Other acute postprocedural pain; F17.210 Nicotine dependence, cigarettes, uncomplicated; Z79.82 Long term (current) use of aspirin; W11.XXXA Fall on and from ladder, initial encounter; Z82.49 Family history of ischemic heart disease and other diseases of the circulatory system
CPT/HCPCS: 20694; 28445; 97161; 80048; 85025; 82306; 73610; 64450; G0378 ×2; C1713; C1762; J2270 ×3; J1100; J2175; J2405; J0690 ×3; J1650 ×2

== ENCOUNTER → 2018-04-26 | Outpatient (CLI) | payer OTHER | LOC: LABWHC1 11:38 | PROVIDERS: ATTEND Physical Medicine & Rehabilitation | DX: S92.112D Displaced fracture of neck of left talus, subsequent encounter for fracture with routine healing (principal); M25.572 Pain in left ankle and joints of left foot; M79.672 Pain in left foot | CPT/HCPCS: 36415; 84402; 84403 ==

== ENCOUNTER → 2019-07-31 | Outpatient (CLI) | payer OTHER ==
--- NOTE | 2019-07-31 14:56 | CT ---
EXAMINATION TYPE: CT ankle LT wo con DATE OF EXAM: 07/31/2019 COMPARISON: 11/01/2017 HISTORY: 43-year-old male Left ankle pain. TECHNIQUE: Contiguous axial scanning of the left ankle without IV contrast. Coronal and sagittal rodger nstructions performed. 3-D reconstructions generated on a dedicated independent workstation. CT DLP: 183.1 mGycm Automated exposure control for dose reduction was used. FINDINGS: Interval surgical arthrodesis of the hindfoot with multiple screws across the patient's previous chirag r waist fracture. Areas of bony bridging are present laterally with some areas of chronic nonunion more medially. The margins of the fracture, particularly at the dorsal talar neck are irregular protruding to bony p rotrusions which would likely contribute to anterior ankle impingement. Remote severe osteopenia but with sclerosis of the head of the talus. Subtle 1 mm step off center noted along the posterior half of the talar articular surface, for exampl e, refer to sagittal images 37, 35, and 34. There is also the presence of what appeared to be very cormier btle fracture lucencies in this region of sclerotic bone, particularly posterolaterally, refer to cor onal image 51 and along the mid lateral talus, refer to sagittal image 28 and coronal image 46. The fixation screws themselves appear to be intact. One of the fixation includes show plates tip just at the subchondral bone plate of the medial talar dome, refer to sagittal image 33 and coronal image 48. There is moderate to severe degenerative change along the posterior and middle subtalar joints. Os peroneum. Underlying tibiotalar joint effusion. Achilles tendon is intact. Corticated bone fragments below the lateral malleolus measure up to 1.2 cm. IMPRESSION: 1. PREVIOUS SURGICAL ARTHRODESIS ACROSS THE PATIENT'S TALAR WAIST FRACTURE. 2. THERE IS SEVERE DISUSE OSTEOPENIA BUT WITH SCLEROSIS OF THE TALAR HEAD. FINDINGS HIGHLY SUSPICIOUS FOR TALAR HEAD AVN ESPECIALLY GIVEN THE PRESENCE OF SMALL SUBCHONDRAL FRACTURES CAUSING 1 MM ARTICUL AR SURFACE STEP-OFFS. SEE ABOVE FOR DETAILS AND IMAGE REFERENCES. 3. THE TALAR WAIST FRACTURE SHOWS BONY BRIDGING LATERALLY WITH SOME AREAS OF CHRONIC NONUNION MEDIALL Y. PROMINENT BONY SPURRING AT THE DORSAL TALAR NECK PROBABLY CONTRIBUTES TO ANTERIOR ANKLE IMPINGEMEN T. 4. POSTTRAUMATIC SUBTALAR JOINT OA, MODERATE TO SEVERE.
== END | disposition home or self-care (01) ==
LOC: RADCTMAIN 13:09
PROVIDERS: ATTEND Orthopaedic Surgery
DX: Z48.89 Encounter for other specified surgical aftercare (principal); M85.80 Other specified disorders of bone density and structure, unspecified site; M19.072 Primary osteoarthritis, left ankle and foot; M19.172 Post-traumatic osteoarthritis, left ankle and foot; S92.112D Displaced fracture of neck of left talus, subsequent encounter for fracture with routine healing; Z98.1 Arthrodesis status

== ENCOUNTER → 2021-05-12 | Outpatient (CLI) | payer OTHER ==
--- NOTE | 2021-05-12 08:28 | US ---
EXAMINATION TYPE: US abdomen complete DATE OF EXAM: 05/12/2021 COMPARISON: NONE CLINICAL HISTORY: Z72.89,R79.89 specified abnormal findings of blood chemistry. elevated lft's, alcoh olism EXAM MEASUREMENTS: Liver Length: 16.0 cm Gallbladder Wall: 0.2 cm CBD: 0.3 cm Spleen: 10.4 cm Right Kidney: 9.6 x 5.0 x 5.1 cm Left Kidney: 11.8 x 4.7 x 5.0 cm Pancreas: wnl Liver: fatty liver Gallbladder: folds seen Evidence for sonographic Huitron's sign: no CBD: wnl Spleen: wnl Right Kidney: wnl Left Kidney: wnl Upper IVC: wnl Abd Aorta: wnl The intrahepatic portion of the IVC and proximal abdominal aorta are within normal limits. There is no evidence of cholelithiasis. Common bile duct is unremarkable. The visualized portions of the hudson creas are homogenous. The spleen is unremarkable. Kidneys are symmetric and free of hydronephrosis. No renal lesions are seen. IMPRESSION: Hepatic steatosis
== END | disposition home or self-care (01) ==
LOC: RADUSWWP 07:33
PROVIDERS: ATTEND Family Medicine
DX: K76.0 Fatty (change of) liver, not elsewhere classified (principal); Z72.89 Other problems related to lifestyle
CPT/HCPCS: 76700

== ENCOUNTER 2022-07-23 09:46 | Emergency (ER) | payer OTHER ==
[2022-07-23 10:13] VITALS: BP 157/92; PULSE 79; RESP 16; TEMP 97.7
[2022-07-23] MEDS ORDERED: KETOROLAC 15 MG/ML 1 ML VIAL IM STA (10:19)
--- NOTE | 2022-07-23 10:22 | ED ---
General Adult HPI - General Chief complaint: Extremity Injury, Upper Stated complaint: Fall, R. Wrist Injury Time Seen by Provider: 07/23/22 10:10 Source: patient, RN notes reviewed, old records reviewed Mode of arrival: ambulatory Limitations: no limitations - History of Present Illness Initial comments: This is a 46-year-old male who presents to the emergency department complaining of right hand and wrist pain after falling last night roller skating. Patient denies any elbow or shoulder pain patient denies any head or neck. Patient has had no other complaints per - Related Data Home Medications Medication Instructions Recorded Confirmed Multivitamin/Iron/Folic Acid 1 tab PO DAILY 08/04/15 11/22/17 [Centrum Complete Multivit Tab] Aspirin 325 mg PO DAILY 11/16/17 11/22/17 Sulfamethox-Tmp 800-160Mg [Bactrim 1 tab PO Q12HR 11/16/17 11/22/17 DS 800-160 mg] oxyCODONE HCL/ACETAMINOPHEN 1 tab PO Q4-6H PRN 11/16/17 11/22/17 [Percocet 5-325 mg] Previous Rx's Medication Instructions Recorded Aspirin 325 mg PO BID #60 tab 11/23/17 oxyCODONE HCL/ACETAMINOPHEN 1 - 2 tab PO Q6HR PRN 3 Days #60 11/23/17 [Percocet 5-325 mg] tab Ketorolac [Toradol] 10 mg PO Q6HR #15 tab 07/23/22 Allergies Allergy/AdvReac Type Severity Reaction Status Date / Time No Known Allergies Allergy Verified 11/21/17 13:34 Review of Systems ROS Statement: Those systems with pertinent positive or pertinent negative responses have been documented in the HPI. ROS Other: All systems not noted in ROS Statement are negative. Past Medical History Past Medical History: No Reported History Additional Past Medical History / Comment(s): fx left ankle 2 weeks ago- fell off ladder, using wheelchair,walker and crutches History of Any Multi-Drug Resistant Organisms: None Reported Past Surgical History: Orthopedic Surgery Additional Past Surgical History / Comment(s): cyst removed from neck, 11/02/17- attempted closed reduction left ankle then external fixation of left ankle Past Anesthesia/Blood Transfusion Reactions: No Reported Reaction Past Psychological History: No Psychological Hx Reported Past Alcohol Use History: Daily Past Drug Use History: None Reported - Past Family History Father Family Medical History: Unable to Obtain Mother Family Medical History: No Reported History Additional Family Medical History / Comment(s): patient denies any family history of CAD or cancer General Exam - General Exam Comments Initial Comments: GENERAL Patient is well-developed and well-nourished. Patient is in mild distress. EYES Patient's pupils are equal and round. Extraocular motion is intact SKIN Unremarkable NEURO The patient is alert and oriented 3 PYSCH Patient has normal interpersonal interactions. MUSCULOSKELETAL Patient has pain in the dorsal and anterior aspect of the wrist as well as metacarpal #3. Hand and wrist are swollen Limitations: no limitations Course Vital Signs 07/23/22 10:10 Temperature 97.7 F Pulse Rate 79 Respiratory 16 Rate Blood Pressure 157/92 O2 Sat by Pulse 98 Oximetry Procedures - Orthopedic Splinting/Casting Injury #1 Side: left Upper Extremity Injury Location: wrist Upper Extremity Immobilizer: volar splint Medical Decision Making - Medical Decision Making Was pt. sent in by a medical professional or institution (, PA, ASSEMBLY ADJUSTER, urgent care, hospital, or correction...) When possible be specific @ -No Did you speak to anyone other than the patient for history (EMS, parent, family, police, friend...)? What history was obtained from this source @ -No Did you review nursing and triage notes (agree or disagree)? Why? @ -I reviewed and agree with nursing and triage notes Were old charts reviewed (outside hosp., previous admission, EMS record, old EKG, old radiological studies, urgent care reports/EKG's, correction records)? Report findings @ -No old charts were reviewed Differential Diagnosis (chest pain, altered mental status, abdominal pain women, abdominal pain men, vaginal bleeding, weakness, fever, dyspnea, syncope, headache, dizziness, GI bleed, back pain, seizure, CVA, palpatations, mental health)? @ -Wrist fracture, hand fracture, hand sprain, wrist sprain, contusion, this is not all inclusive list EKG interpreted by me (3pts min.). @ -As above X-rays interpreted by me (1pt min.). @ -I interpreted the x-ray of the risks I saw no acute abnormality. I interpreted the x-rays and I saw no acute normalities. CT interpreted by me (1pt min.). @ -I interpreted the CT of the wrist and it showed a comminuted nondisplaced fracture of the distal radius U/S interpreted by me (1pt. min.). @ -None done What testing was considered but not performed or refused? (CT, X-rays, U/S, labs)? Why? @ -None What meds were considered but not given or refused? Why? @ -None Did you discuss the management of the patient with other professionals (professionals i.e. DrSimone, PA, ASSEMBLY ADJUSTER, lab, RT, psych nurse, manager social media, applied anthropologist, teacher, service officer, case consultant)? Give summary @ -No Was smoking cessation discussed for >3mins.? @ -No Was critical care preformed (if so, how long)? @ -No Were there social determinants of health that impacted care today? How? (Fermin elessness, low income, unemployed, alcoholism, drug addiction, transportation, low edu. Level, literacy, decrease access to med. care, alf, rehab)? @ -No Was there de-escalation of care discussed even if they declined (Discuss DNR or withdrawal of care, Hospice)? DNR status @ -No What co-morbidities impacted this encounter? (DM, HTN, Smoking, COPD, CAD, Cancer, CVA, ARF, Chemo, Hep., AIDS, mental health diagnosis, sleep apnea, morbid obesity)? @ -None Was patient admitted / discharged? Hospital course, mention meds given and route, prescriptions, significant lab abnormalities, going to OR and other pertinent info. @ -She we discharged home. Patient will follow-up with orthopedics. Undiagnosed new problem with uncertain prognosis? @ -No Drug Therapy requiring intensive monitoring for toxicity (Heparin, Nitro, Insulin, Cardizem)? @ -No Were any procedures done? @ -No Diagnosis/symptom? @ -Distal radius fracture Acute, or Chronic, or Acute on Chronic? @ -Acute Uncomplicated (without systemic symptoms) or Complicated (systemic symptoms)? @ -Uncomplicated Side effects of treatment? @ -No Exacerbation, Progression, or Severe Exacerbation? @ -No Poses a threat to life or bodily function? How? (Chest pain, USA, SC, pneumonia, PE, COPD, DKA, ARF, appy, cholecystitis, CVA, Diverticulitis, Homicidal, Suicidal, threat to staff... and all critical care pts) @ -No Disposition Clinical Impression: Distal radial fracture Disposition: HOME SELF-CARE Condition: Good Instructions (If sedation given, give patient instructions): Arm Fracture in Adults (ED) Additional Instructions: Patient should ice the area 20 minutes at a time for the first 24-48 hours. Patient should follow-up with orthopedics. Prescriptions: Ketorolac [Toradol] 10 mg PO Q6HR #15 tab Is patient prescribed a controlled substance at d/c from ED?: No Referrals: Juan Huitron MD [STAFF PHYSICIAN] - 1-2 days
--- NOTE | 2022-07-23 11:04 | XR ---
EXAMINATION TYPE: XR hand complete RT, XR wrist complete RT DATE OF EXAM: 07/23/2022 10:33 AM INDICATION: Patient age:Male; 46 years old; Reason for study: Fall; COMPARISON: None TECHNIQUE: Frontal, lateral and oblique views of the right wrist and hand were obtained. Additional n avicular view of the right breast. FINDINGS: Normal alignment of the visualized joints. No acute osseous pathology is identified. No e vidence of soft tissue swelling. IMPRESSION: No acute osseous pathology.
[2022-07-23] MEDS ORDERED: HYDROmorphone 0.5 MG/0.5 ML SYRINGE IVP STA (11:26)
--- NOTE | 2022-07-23 12:27 | CT ---
EXAMINATION TYPE: CT wrist RT wo con CT DLP: 160.5 mGycm, Automated exposure control for dose reduction was used. DATE OF EXAM: 07/23/2022 12:11 PM COMPARISON: Extremity radiograph same day. CLINICAL INDICATION:Male, 46 years old with history of trauma, Trauma. Fall, Right wrist injury TECHNIQUE: Axial images were obtained of the right wrist . Additional coronal and sagittal reformatt ed images and soft tissue and bone window were obtained for review. 3-D reconstruction was created on a separate workstation. Contrast used: None Oral contrast used: None FINDINGS: Comminuted right radius fracture with multiple fracture lines present extending through the distal radius joint. There is less than 1 mm displacement of these findings. There is soft tissue sw elling throughout the distal forearm. No evidence of dislocation. The visualized carpal bones are int act. There is subchondral cystic changes of the capitate and hamate bone. Findings communicated to Dr. Anil Tran MD on 07/23/2022 12:[address] Bean Hernandez. IMPRESSION: Comminuted fracture of the distal right radius with multiple intra-articular fracture lines present. There is less than 1 mm displacement of the fracture lines.
== END 2022-07-23 13:39 | disposition home or self-care (01) ==
LOC: EC 09:46
DX: S52.501A Unspecified fracture of the lower end of right radius, initial encounter for closed fracture (principal); X58.XXXA Exposure to other specified factors, initial encounter; Y93.51 Activity, roller skating (inline) and skateboarding
CPT/HCPCS: 99284; 96374; 96372; 73110; 73130; 73200; J1885; J1170

== ENCOUNTER 2022-12-13 21:18 | Emergency (ER) | payer OTHER ==
[2022-12-13 21:33] VITALS: TEMP 98.3
[2022-12-13 23:22] VITALS: BP 110/83; PULSE 91
[2022-12-13 23:54] VITALS: RESP 18
--- NOTE | 2022-12-14 06:02 | ED ---
Alcohol HPI - General Source: patient Mode of arrival: EMS Limitations: no limitations - History of Present Illness MD Complaint: alcohol intoxication Last Drink: unknown -: minute(s) Previous Visits for Alcohol Intoxication?: Yes Recent Trauma: No Associated Symptoms: denies other symptoms Treatments Prior to Arrival: none Chronic Alcohol Use: Yes <Jere Box - Last Filed: 12/14/22 05:52> - General Source: EMS, RN notes reviewed <Shaquille Parker - Last Filed: 12/14/22 06:42> - General Chief Complaint: Alcohol Stated Complaint: ETOH Time Seen by Provider: 12/13/22 21:22 - History of Present Illness Initial Comments: This patient is 47-year-old man who was found apparently intoxicated in public. The patient was outside of the [place] where he was reportedly trying to get on his bicycle but too intoxicated. When I interview the patient, he thought that he had been brought to [facility]. He was denying trauma. No was made of ankle swelling and he states that that is chronic. He reports previous fracture with surgery and that he is able to ambulate. Denies head injury. (Jere Box) - Related Data Home Medications Medication Instructions Recorded Confirmed Multivitamin/Iron/Folic Acid 1 tab PO DAILY 08/04/15 11/22/17 [Centrum Complete Multivit Tab] Aspirin 325 mg PO DAILY 11/16/17 11/22/17 Sulfamethox-Tmp 800-160Mg [Bactrim 1 tab PO Q12HR 11/16/17 11/22/17 DS 800-160 mg] oxyCODONE HCL/ACETAMINOPHEN 1 tab PO Q4-6H PRN 11/16/17 11/22/17 [Percocet 5-325 mg] Previous Rx's Medication Instructions Recorded Aspirin 325 mg PO BID #60 tab 11/23/17 oxyCODONE HCL/ACETAMINOPHEN 1 - 2 tab PO Q6HR PRN 3 Days #60 11/23/17 [Percocet 5-325 mg] tab Ketorolac [Toradol] 10 mg PO Q6HR #15 tab 07/23/22 Allergies Allergy/AdvReac Type Severity Reaction Status Date / Time No Known Allergies Allergy Verified 11/21/17 13:34 Review of Systems ROS Other: All systems not noted in ROS Statement are negative. Constitutional: Denies: fever Respiratory: Denies: cough, dyspnea Cardiovascular: Denies: chest pain Gastrointestinal: Denies: abdominal pain, vomiting Musculoskeletal: Denies: back pain Neurological: Denies: headache <Jere Box - Last Filed: 12/14/22 05:52> ROS Other: All systems not noted in ROS Statement are negative. <Shaquille Parker - Last Filed: 12/14/22 06:42> ROS Statement: Those systems with pertinent positive or pertinent negative responses have been documented in the HPI. Past Medical History Past Medical History: No Reported History Additional Past Medical History / Comment(s): fx left ankle 2 weeks ago- fell off ladder, using wheelchair,walker and crutches History of Any Multi-Drug Resistant Organisms: None Reported Past Surgical History: Orthopedic Surgery Additional Past Surgical History / Comment(s): cyst removed from neck, 11/02/17- attempted closed reduction left ankle then external fixation of left ankle Past Anesthesia/Blood Transfusion Reactions: No Reported Reaction Past Psychological History: No Psychological Hx Reported Past Alcohol Use History: Daily Past Drug Use History: None Reported - Past Family History Father Family Medical History: Unable to Obtain Mother Family Medical History: No Reported History Additional Family Medical History / Comment(s): patient denies any family history of CAD or cancer <Jere Box - Last Filed: 12/14/22 05:52> General Exam Limitations: no limitations General appearance: alert, appears intoxicated Head exam: Present: atraumatic, normocephalic Eye exam: Present: normal appearance, PERRL, EOMI, nystagmus. Absent: scleral icterus, conjunctival injection ENT exam: Present: normal oropharynx Neck exam: Present: normal inspection, full ROM. Absent: tenderness Respiratory exam: Present: normal lung sounds bilaterally. Absent: respiratory distress, wheezes, rales, rhonchi, stridor Cardiovascular Exam: Present: regular rate, normal rhythm, normal heart sounds. Absent: systolic murmur, diastolic murmur, rubs, gallop GI/Abdominal exam: Present: soft. Absent: distended, tenderness, guarding, rebound, rigid, mass Extremities exam: Present: normal capillary refill, other (There is some swelling of the left ankle. No tenderness. No obvious deformity.). Absent: normal inspection, tenderness Back exam: Present: normal inspection. Absent: vertebral tenderness Neurological exam: Present: alert, CN II-XII intact, other (Mild dysarthria. Mild ataxia). Absent: oriented X3, motor sensory deficit Skin exam: Present: warm, dry, intact, normal color. Absent: rash <Jere Box - Last Filed: 12/14/22 05:52> Course Vital Signs 12/13/22 12/13/22 12/13/22 21:28 23:20 23:53 Temperature 98.3 F Pulse Rate 122 H 91 Respiratory 18 17 18 Rate Blood Pressure 120/78 110/83 O2 Sat by Pulse 90 L 94 L Oximetry Medical Decision Making <Jere Box - Last Filed: 12/14/22 05:52> <Shaquille Parker - Last Filed: 12/14/22 06:42> - Medical Decision Making Patient's 47-year-old man paralleled all intoxication. The patient unable to provide a contact tool take custody of him. Patient will be observed until sobriety. Was pt. sent in by a medical professional or institution (, PA, BRICK BURNER HEAD, urgent care, hospital, or senior care...) When possible be specific @ -[No] Did you speak to anyone other than the patient for history (EMS, parent, family, police, friend...)? What history was obtained from this source @ -[EMS Did you review nursing and triage notes (agree or disagree)? Why? @ -[I reviewed and agree with nursing and triage notes] Were old charts reviewed (outside hosp., previous admission, EMS record, old EKG, old radiological studies, urgent care reports/EKG's, senior care records)? Report findings @ -[No old charts were reviewed] Differential Diagnosis (chest pain, altered mental status, abdominal pain women, abdominal pain men, vaginal bleeding, weakness, fever, dyspnea, syncope, headache, dizziness, GI bleed, back pain, seizure, CVA, palpatations, mental health, musculoskeletal)? @ -[Differential Altered Mental Status: Hypoglycemia, DKA, hypercapnia, ETOH, overdose, CO poisoning, trauma, myxedema coma, HTN encephalopathy, infection, encephalitis, psychosis, intercranial hemorrhage, hepatic encephalopathy, meningitis, CVA, this is not meant to be an all-inclusive list EKG interpreted by me (3pts min.). @ -[ X-rays interpreted by me (1pt min.). @ -[None done] CT interpreted by me (1pt min.). @ -[None done] U/S interpreted by me (1pt. min.). @ -[None done] What testing was considered but not performed or refused? (CT, X-rays, U/S, labs)? Why? @ -[None] What meds were considered but not given or refused? Why? @ -[None] Did you discuss the management of the patient with other professionals (professionals i.e. , PA, BRICK BURNER HEAD, lab, RT, psych nurse, healthcare social worker, gear tester, teacher, staff command and control officer, case filler)? Give summary @ -[No] Was smoking cessation discussed for >3mins.? @ -[No] Was critical care preformed (if so, how long)? @ -[No] Were there social determinants of health that impacted care today? How? (Homelessness, low income, unemployed, alcoholism, drug addiction, transportation, low edu. Level, literacy, decrease access to med. care, [facility], rehab)? @ -[Oh colonies Was there de-escalation of care discussed even if they declined (Discuss DNR or withdrawal of care, Hospice)? DNR status @ -[No] What co-morbidities impacted this encounter? (DM, HTN, Smoking, COPD, CAD, Cancer, CVA, ARF, Chemo, Hep., AIDS, mental health diagnosis, sleep apnea, morbid obesity)? @ -[None] Was patient admitted / discharged? Hospital course, mention meds given and route, prescriptions, significant lab abnormalities, going to OR and other pertinent info. @ -[The patient is in the department pending sobriety at shift change (Jere Box) Patient was found to be acutely intoxicated. Patient was reevaluated and sober patient is awake alert and orientated with no complaints. Denies any head neck, back chest or abdominal pain. Patient was able to be discharged in a safe manner with close follow-up return parameters were discussed. Diagnosis/symptom? @ -Alcohol intoxication Acute, or Chronic, or Acute on Chronic? @ -Acute Uncomplicated (without systemic symptoms) or Complicated (systemic symptoms)? @ -Uncomplicated Side ffecs of treatment? @ -[none] Exacerbation, Progresson, o Svere Exacerbation] @ -[no] Poses a threat to lie r bodily function? @ -[no] (Shaquille Parker) Disposition <Jere Box - Last Filed: 12/14/22 05:52> Is patient prescribed a controlled substance at d/c from ED?: No Time of Disposition: 06:12 <Shaquille Parker - Last Filed: 12/14/22 06:42> Clinical Impression: Alcoholic intoxication Disposition: HOME SELF-CARE Condition: Stable Instructions (If sedation given, give patient instructions): Alcohol Intoxication (ED) Additional Instructions: Please return to the Emergency Department if symptoms worsen or any other concerns. Referrals: Rachael Rodgers MD [Primary Care Provider] - 1-2 days
== END 2022-12-14 06:59 | disposition home or self-care (01) ==
LOC: EC 21:18
DX: F10.129 Alcohol abuse with intoxication, unspecified (principal); Z79.82 Long term (current) use of aspirin
CPT/HCPCS: 99284

== ENCOUNTER → 2024-07-31 | Outpatient (CLI) | payer OTHER ==
--- NOTE | 2024-07-31 08:42 | US ---
EXAMINATION TYPE: US abdomen complete DATE OF EXAM: 07/31/2024 COMPARISON: 01/09/2023 CLINICAL INDICATION: Male, 48 years old with history of R74.01 ELEVATION OF LEVELS OF LIVER TRANSAMIN ASE L; Abnormal labs. TECHNIQUE: Grayscale and color Doppler imaging of the abdomen was performed. FINDINGS: EXAM MEASUREMENTS: Liver Length: 14.3 cm Gallbladder Wall: 0.2 cm CBD: 0.4 cm, color Doppler imaging was utilized to isolate the common bile duct for measurement. Spleen: 9.7 cm Right Kidney: 9.7 x 5.3 x 5.8 cm Left Kidney: 10.8 x 4.8 x 5.3 cm Pancreas: Tail obscured by overlying bowel gas Liver: Hypoechoic avascular area seen adjacent to GB = 1.2 x 0.9 cm Gallbladder: wnl, folds seen Evidence for sonographic Huitron's sign: Neg CBD: wnl Spleen: wnl for portions seen, limited due to gas Right Kidney: wnl, No hydronephrosis, calculi or masses seen Left Kidney: wnl, No hydronephrosis, calculi or masses seen Upper IVC: wnl Abd Aorta: No AAA visualized at time of scan The liver is homogenous with increased echotexture. The intrahepatic portion of the IVC and proximal abdominal aorta are within normal limits. There is no evidence of cholelithiasis. Common bile duct is unremarkable. The visualized portions of the pancreas are homogenous. The spleen is unremarkabl e. Kidneys are symmetric and free of hydronephrosis. No renal lesions are seen. IMPRESSION: 1. No evidence for acute process 2. Hepatic steatosis with focal fatty sparing next to the gallbladder fossa versus cyst. [facility], , 07/31/2024 8:40 AM
== END | disposition home or self-care (01) ==
LOC: RADUSWWP 07:55
PROVIDERS: ATTEND Internal Medicine Gastroenterology
DX: R74.01 Elevation of levels of liver transaminase levels (principal)
CPT/HCPCS: 76700